=== PATIENT | female | born 1975 | race African-American/Black ===

== ENCOUNTER 2016-11-12 20:50 | Emergency (ER) | payer OTHER ==
[~2016-11-12] VITALS: Ht 175.3 cm; Wt 99.8 kg
[~2016-11-12 20:50] MED LIST: ARIP30TA3 PO; HALO5TAB21 PO; TRAZ-289 PO; VENL75TA17 PO; [UNRECOGNIZED DRUG - CODE] PO
[2016-11-12 20:53] VITALS: BP 145/90
--- NOTE | 2016-11-13 00:35 | NUR ---
PT TAKEN TO OF2
--- NOTE | 2016-11-13 01:10 | NUR ---
Dr. Ness evaluating patient
--- NOTE | 2016-11-13 01:15 | NUR ---
41Y/F PATIENT PRESENTS TO ED WITH REQUESTING FOR MEDS REFILL. PT STATES REQUESTING FOR MEDICATION REFILL, ABILIFY 20 MG PO BID, EFFEXOR 225 MG PO DAILY, CONGENTIN 1 MG PO BID, TRAZEDONE 300 MG PO DAILY, HALDOL 15 MG DAILY SKIN IS PINK/WARM/DRY; AAOX4 WITH EVEN AND STEADY GAIT; LUNGS CLEAR BL; HR EVEN AND REGULAR; PT DENIES ANY FEVER, CP, SOB, OR COUGH AT THIS TIME; PATIENT STATES PAIN OF 0/10 AT THIS TIME; VSS; ER MD MADE AWARE OF PT STATUS.
--- NOTE | 2016-11-13 01:20 | NUR ---
PT.STATES LT.KNEE PAIN 12/05, DR. JORGENSEN MADE AWARE
--- NOTE | 2016-11-13 02:12 | NUR ---
PT TAKEN TO XRAY
--- NOTE | 2016-11-13 02:23 | NUR ---
PT RETURN FROM XRAY
--- NOTE | 2016-11-13 03:01 | NUR ---
Patient discharged with v/s stable. Written and verbal after care instructions given and explained. Patient alert, oriented and verbalized understanding of instructions. Ambulatory with steady gait. All questions addressed prior to discharge. ID band removed. Patient advised to follow up with PMD. Rx of MOTRIN 600 MG, EFFEXOR 25 MG, ABILIFY 10 MG, TRAZODONE 300 MG, HALOPERIDOL 5 MG, EFFEXOR 100 MG given. Patient educated on indication of medication including possible reaction and side effects. Opportunity to ask questions provided and answered. LT. KNEE IMMOBILIZATION APPLIED, AMBULATES WITH USING CRUSHES.
[2016-11-13 03:38] VITALS: BP 135/85
== END 2016-11-13 03:01 | disposition home or self-care (01) ==
LOC: MED 20:50
PROC: 2W3PX1Z Immobilization of Left Upper Leg using Splint (ICD-10-PCS; principal; 2016-11-13)
DX: Z76.0 Encounter for issue of repeat prescription (principal); S82.102 Unspecified fracture of upper end of left tibia; R03.0 Elevated blood-pressure reading, without diagnosis of hypertension; F31.9 Bipolar disorder, unspecified; F60.3 Borderline personality disorder; F17.210 Nicotine dependence, cigarettes, uncomplicated; F15.10 Other stimulant abuse, uncomplicated
CPT/HCPCS: 29505; 73562; 99284

== ENCOUNTER 2016-11-20 19:09 | Emergency (ER) | payer OTHER ==
[~2016-11-20] VITALS: Ht 177.8 cm; Wt 90.9 kg
[~2016-11-20 19:09] MED LIST changes: +ABILIFY30 MG PO; -ARIP30TA3 PO; +BENZTROPINE2 MG PO; +CEPHALEXIN500 MG PO; +DIPHENHYDRAMINE PO; +EFFEXOR75 MG PO; +FAMOTIDINE20 M1 PO; -HALO5TAB21 PO; +HALOPERIDOL5 M1 PO; +IBUPROFEN400 M1 PO; -TRAZ-289 PO; +TRAZODONE HCL100 M1 PO; -VENL75TA17 PO; -[UNRECOGNIZED DRUG - CODE] PO
[2016-11-20 19:18] VITALS: BP 140/108
--- NOTE | 2016-11-20 20:35 | NUR ---
PLACED IN BED 3. HERE FOR LEFT LEG PAIN (03/07).
--- NOTE | 2016-11-20 20:42 | NUR ---
CAME AT BEDSIDE TO EVALUATE PATIENT.
[2016-11-20] MEDS ORDERED: KETOROLAC 60 MG/2 ML VIAL IM ONE (20:50)
--- NOTE | 2016-11-20 20:53 | NUR ---
TORADOL 60 MG IM GIVEN VIA RIGHT GLUTEAL MUSCLE.
--- NOTE | 2016-11-20 21:27 | NUR ---
Patient discharged with v/s stable. Written and verbal after care instructions given and explained. Patient alert, oriented and verbalized understanding of instructions. Ambulatory with steady gait. All questions addressed prior to discharge. ID band removed. Patient advised to follow up with PMD. Rx of MOTRIN AND TRAMADOL given. Patient educated on indication of medication including possible reaction and side effects. Opportunity to ask questions provided and answered.
[2016-11-20 21:45] VITALS: BP 139/90
== END 2016-11-20 21:27 | disposition home or self-care (01) ==
LOC: MED 19:09
DX: S83.92XA Sprain of unspecified site of left knee, initial encounter (principal); R03.0 Elevated blood-pressure reading, without diagnosis of hypertension; J45.909 Unspecified asthma, uncomplicated; W19.XXXA Unspecified fall, initial encounter; Y93.89 Activity, other specified; Y92.89 Other specified places as the place of occurrence of the external cause; Y99.8 Other external cause status
CPT/HCPCS: 81002; 81025; 96372; 99283; J1885

== ENCOUNTER 2019-03-27 13:30 | Emergency (ER) | payer MEDICAID, OTHER ==
[~2019-03-27] VITALS: Ht 175.3 cm; Wt 80.3 kg
[~2019-03-27 13:30] MED LIST changes: -ABILIFY30 MG PO; +ARIP30TA1 PO; -BENZTROPINE2 MG PO; -CEPHALEXIN500 MG PO; -DIPHENHYDRAMINE PO; -EFFEXOR75 MG PO; -FAMOTIDINE20 M1 PO; +HALO5TAB21 PO; -HALOPERIDOL5 M1 PO; -IBUPROFEN400 M1 PO; +TRAZ-345 PO; -TRAZODONE HCL100 M1 PO; +VENL75TA17 PO; +[UNRECOGNIZED DRUG - CODE] PO
[2019-03-27 13:48] VITALS: BP 144/75
--- NOTE | 2019-03-27 17:30 | NUR ---
C/O "BUG BITES SCATTERED THROUGHOUT MY BODY" AND A WOUND TO R BREAST. NO VISABLE BUG BITES. PT IS DISPLAYING SCATTERED THOUGHTS AND CAN'T FOCUS ON QUESTIONS ASKED. PT STATES SHE WOULD ALSO LIKE A MED REFILL ON LISTED MEDS BELOW. WHEN ASKED PATIENT TO SHOW BUG BITES AND WOUND, PATIENT PULLED DOWN PANTS AND POINTED TO A RASH ON PTS L SIDE OF GROIN. BED IS DOWN, LOCKED, BED RAIL X 1, ERMD TO SEE PT HX: SCHIZOPHRENIA, PTSD, DEPRESSION RX: VENOFAXIN, ABILIFY, TRAZODONE, HALOPERIDOL, COGENTIN
--- NOTE | 2019-03-27 17:31 | NUR ---
ATUL STATES SHE IS STAYING WITH HER AUNT LYNDSAY
--- NOTE | 2019-03-27 17:54 | NUR ---
PT SLEEPING IN BED, RR EVEN AND UNLABORED
--- NOTE | 2019-03-27 18:28 | NUR ---
LOS ZUÑIGA AT BEDSIDE FOR MSE
--- NOTE | 2019-03-27 19:23 | NUR ---
report given to marilyn rn, transfer of care
[2019-03-27 19:30] VITALS: BP 110/70
--- NOTE | 2019-03-27 19:30 | NUR ---
Patient discharged with v/s stable. Written and verbal after care instructions given and explained. Patient verbalized understanding. Ambulatory with steady gait. All questions addressed prior to discharge. Advised to follow up with PMD.
== END 2019-03-27 19:30 | disposition home or self-care (01) ==
LOC: MED 13:30
DX: S50.861A Insect bite (nonvenomous) of right forearm, initial encounter (principal); S30.861A Insect bite (nonvenomous) of abdominal wall, initial encounter; J45.909 Unspecified asthma, uncomplicated; E11.9 Type 2 diabetes mellitus without complications; I10 Essential (primary) hypertension; F20.9 Schizophrenia, unspecified; Z79.899 Other long term (current) drug therapy; W57.XXXA Bitten or stung by nonvenomous insect and other nonvenomous arthropods, initial encounter; Y93.89 Activity, other specified; Y92.89 Other specified places as the place of occurrence of the external cause; Y99.8 Other external cause status
CPT/HCPCS: 99283

== ENCOUNTER 2020-10-14 12:55 | Emergency (ER) | payer MEDICAID ==
[~2020-10-14] VITALS: Ht 160 cm; Wt 56.7 kg
[2020-10-15 21:38] VITALS: BP 137/90
[2020-10-15 21:59] LABS: BASOPHILS % (AUTO) 0.3 % (0.0-2.0); EOSINOPHILS # (AUTO) 0.1 K/uL (0-0.4); EOSINOPHILS % (AUTO) 1.8 % (0.0-4.0); HEMATOCRIT 32.7 % (36-48); LYMPHOCYTES # (AUTO) 1.4 K/uL (2.5-16.5); MEAN CORPUSCULAR HEMOGLOBIN 29 pg (27-31); MEAN CORPUSCULAR HGB CONC 34 g/dL (33-37); MEAN CORPUSCULAR VOLUME 86.1 fL (80-94); MONOCYTES # (AUTO) 0.6 K/uL (0.8-1.0); MONOCYTES % (AUTO) 7.7 % (1.7-9.3); NEUTROPHILS % (AUTO) 73.2 % (42.2-75.2); PLATELET COUNT (AUTO) 320 K/uL (140-450); RED BLOOD CELL COUNT(AUTO) 3.79 MIL/uL (4.20-5.40); RED CELL DISTRIBUTION WIDTH 16.7 % (11.6-13.7); WHITE BLOOD COUNT (AUTO) 8.2 K/uL (4.8-10.8)
[2020-10-15 22:20] LABS: APPEARANCE,URINE CLEAR (CLEAR); BILIRUBIN,URINE NEGATIVE (NEGATIVE); BLOOD, URINE NEGATIVE (NEGATIVE); COLOR,URINE YELLOW (YELLOW); LEUKOCYTE ESTERASE ,URINE 1+ (NEGATIVE); NITRITE, URINE NEGATIVE (NEGATIVE); UGLUCOSE NEGATIVE (NEGATIVE)
[2020-10-15 22:20] LABS: ALBUMIN 2.9 g/dL (3.4-5.0); ANION GAP 10.6 (8-16); ASPARTATE AMINOTRANSFERASE 27 U/L (15-37); CARBON DIOXIDE 28.5 mmol/L (21-32); CHLORIDE 103 mmol/L (98-107); CREATININE 0.8 mg/dL (0.6-1.3); GFR ARICAN-AMERICAN 100 mL/min (>90); GLUCOSE 103 mg/dL (74-106); LIPASE 46 U/L (73-393); POTASSIUM 4.1 mmol/L (3.5-5.1); SODIUM SERUM 138 mmol/L (136-145); TOTAL BILIRUBIN 0.3 mg/dL (0.0-1.0); UREA NITROGEN, BLOOD 17 mg/dL (7-18)
[2020-10-15 22:27] LABS: SALICYLATE < 2.8 mg/dL (2.8-20.0)
[2020-10-15 22:38] LABS: BENZODIAZEPINE, URINE POSITIVE ng/mL (NEG <=200)
[2020-10-15 22:39] LABS: BARBITURATE, URINE NEGATIVE ng/ml (NEG <=200); CANNABINOID, URINE NEGATIVE ng/mL (NEG <=50); COCAINE, URINE NEGATIVE ng/mL (NEG <=300); OPIATE, URINE NEGATIVE ng/mL (NEG <=2000); PHENCYCLIDINE SCREEN,URINE NEGATIVE ng/mL (NEG <=25)
[2020-10-15 22:41] LABS: RBC,URINE 0-5 /HPF (0-5); TRICHOMONAS,URINE Rare /HPF (None Seen); WBC,URINE 0-5 /HPF (0-5)
[2020-10-15 22:51] LABS: ACETAMINOPHEN < 0.5 ug/ml (10-30)
[2020-10-15] MEDS ORDERED: metroNIDAZOLE 250 MG TAB PO ONE (23:55)
[2020-10-16 06:27] VITALS: BP 126/80
== END 2020-10-16 06:27 | disposition home or self-care (01) ==
LOC: MED 12:55
DX: R45.851 Suicidal ideations (principal); F12.10 Cannabis abuse, uncomplicated; A59.9 Trichomoniasis, unspecified; J45.909 Unspecified asthma, uncomplicated; E11.9 Type 2 diabetes mellitus without complications; I10 Essential (primary) hypertension; Z79.899 Other long term (current) drug therapy; Z20.822 Contact with and (suspected) exposure to COVID-19
CPT/HCPCS: 36415; 80053; 80305; 81001; 83690; 85025; 87086; 87426; 99285; G0480; G0482; U0003

== ENCOUNTER 2022-12-06 22:20 | Emergency (ER) | payer MEDICAID ==
[~2022-12-06] VITALS: Ht 175.3 cm; Wt 68.0 kg
[2022-12-06 22:23] VITALS: BP 158/99
--- NOTE | 2022-12-07 00:02 | NUR ---
Seen and evaluated by CHAITANYA
[2022-12-07 00:03] VITALS: BP 150/93
== END 2022-12-07 00:02 | disposition home or self-care (01) ==
LOC: MED 22:20
DX: F41.9 Anxiety disorder, unspecified (principal); J45.909 Unspecified asthma, uncomplicated; E11.9 Type 2 diabetes mellitus without complications; I10 Essential (primary) hypertension; Z79.899 Other long term (current) drug therapy
CPT/HCPCS: 99283